=== PATIENT | female | born 1970 | race Caucasian/White ===

== ENCOUNTER → 2016-07-01 | Outpatient (CLI) | payer BC, OTHER ==
--- NOTE | 2016-07-01 08:56 | US ---
EXAMINATION TYPE: US pelvis complete transvag DATE OF EXAM: 07/01/2016 8:44 AM COMPARISON: NONE CLINICAL HISTORY: DUB N93.9. Tubal ligation 17 years ago TECHNIQUE: Transvaginal (TV) and Transabdominal (TA) Date of LMP: 06/24/16 EXAM MEASUREMENTS: Uterus: 9.5 x 5.9 x 8.1 cm Endometrial Stripe: 0.9 cm Right Ovary: 2.9 x 1.9 x 1.4 cm Left Ovary: unable to visualize TECHNOLOGIST IMPRESSION: 1. Uterus: Anteverted Nabothian cysts 2. Endometrium: appears wnl 3. Right Ovary: appears wnl 4. Left Ovary: unable to visualize 5. Bilateral Adnexa: appears wnl 6. Posterior cul-de-sac: small amount of free fluid IMPRESSION: NABOTHIAN CYSTS.
== END | disposition home or self-care (01) ==
LOC: RADUSWWP 08:00
PROVIDERS: ATTEND Internal Medicine
DX: N88.8 Other specified noninflammatory disorders of cervix uteri (principal)
CPT/HCPCS: 76830; 76856

== ENCOUNTER → 2016-09-30 | Outpatient (CLI) | payer OTHER ==
--- NOTE | 2016-10-03 11:34 | MM ---
Reason for exam: screening (asymptomatic). Baseline mammogram. History: Taking hormonal contraceptives for 6 months. Physical Findings: Nurse did not find any significant physical abnormalities on exam. MG Screening Mammo w CAD Bilateral CC and MLO view(s) were taken. The breast tissue is heterogeneously dense. This may lower the sensitivity of mammography. Suggestion of bilateral partially obscured nodularity measuring up to 2.2cm on the left MLO view. These results were verbally communicated with the patient and result sheet given to the patient on 09/30/16. ASSESSMENT: Incomplete: need additional imaging evaluation, BI-RAD 0 RECOMMENDATION: Special view mammogram and ultrasound of both breasts. [facility] will attempt to contact patient to return for supplemental views and ultrasound.
--- NOTE | 2016-10-03 11:36 | MM ---
Reason for exam: additional evaluation requested from abnormal screening. History: Taking hormonal contraceptives for 6 months. Physical Findings: Breast exam preformed at baseline screening. MG Work Up Mamm w CAD BILAT Bilateral LM view(s) were taken. The breast tissue is heterogeneously dense. This may lower the sensitivity of mammography. Some of the nodularity becomes more obscured on the lateral views, further ultrasound evaluation is recommended. These results were verbally communicated with the patient and result sheet given to the patient on 09/30/16. ASSESSMENT: Incomplete: need additional imaging evaluation, BI-RAD 0 RECOMMENDATION: Ultrasound of both breasts. (superior halves)
--- NOTE | 2016-10-03 11:42 | USB ---
Reason for exam: additional evaluation requested from abnormal screening. History: Taking hormonal contraceptives for 6 months. US Breast Workup Limited AUGUSTIN Right breast ultrasound demonstrates a 0.7 x 0.6 x 0.2cm oval, cystic lesion at 9 o'clock, a 0.4 x 0.3 x 0.3cm cystic lesion at 10 o'clock, a 0.6 x 0.6 x 0.3cm oval, cystic lesion at 12 o'clock, a 1.5 x 1.2 x 1.1 cm cystic cluster verses complex cyst at 12 o'clock for which a 6 month follow up is recommended, a 0.6 x 0.6 x 0.6 cm cystic, septated lesion at 3 o'clock versus complex cysts or fibrocystic change for which a 6 month follow up is recommended, a 1.3 x 1.3 x 0.9 cm cystic, septated lesion at 3 o'clock versus complex cysts or fibrocystic change for which a 6 month follow up is recommended, and a 0.6 x 0.5 x 0.5cm round, cystic lesion at 3 o'clock. Left breast ultrasound demonstrates a 1.4 x 1.4 x 0.7 cm cystic lesion at 10 o'clock, a 1.0 x 0.9 x 0.7cm oval, cystic lesion at 9 o'clock, a 1.2 x 1.1 x 0.6cm oval, cystic lesion at 11 o'clock, a 1.6 x 1.9 x 1.0cm oval, cystic lesion at 12 o'clock, likely corresponds to the dominant mammographic nodule, a 0.7 x 0.6 x 0.4cm oval, hypoechoic lesion at 2 o'clock possible cystic but located deep, echoes may be artifactual for which a 6 month follow up is recommended, and a 0.4 x 0.3 x 0.4cm oval, cystic lesion at 3 o'clock. These results were verbally communicated with the patient and result sheet given to the patient on 09/30/16. ASSESSMENT: Probably benign, BI-RAD 3 RECOMMENDATION: Ultrasound of both breasts in 6 months. Right breast targeted 12 and 3 o'clock. Left breast targeted at 2 o'clock.
== END | disposition home or self-care (01) ==
LOC: RADMAMWWP 07:32
PROVIDERS: ATTEND Obstetrics & Gynecology
DX: Z12.31 Encounter for screening mammogram for malignant neoplasm of breast (principal); R92.2 Inconclusive mammogram; R92.8 Other abnormal and inconclusive findings on diagnostic imaging of breast
CPT/HCPCS: 76642; G0202; G0204

== ENCOUNTER → 2016-09-30 | Outpatient (CLI) | payer OTHER ==
[2016-09-30 10:46] LABS: Basophils % (A) 0 %; CH 27.7; CHCM 31.2; Eosinophils # (A) 0.2 k/uL (0-0.7); Eosinophils % (A) 2 %; HDW 2.36; HGB 12.8 gm/dL (11.4-16.0); Hypochromasia Slight; Luc # (Auto) 0.21; Luc % (Auto) 3; Lymphocytes # (A) 2.5 k/uL (1.0-4.8); Lymphocytes % (A) 33 %; MCH 28.4 pg (25.0-35.0); Monocytes # (A) 0.3 k/uL (0-1.0); Monocytes % (A) 4 %; Neutrophils # (A) 4.3 k/uL (1.3-7.7); Neutrophils % (A) 57 %; RBC 4.49 m/uL (3.80-5.40); RDW 13.6 % (11.5-15.5); WBC 7.6 k/uL (3.8-10.6); WBC (Perox) 7.81
== END | disposition home or self-care (01) ==
LOC: LABPAT 09:24
PROVIDERS: ATTEND Obstetrics & Gynecology
DX: Z01.812 Encounter for preprocedural laboratory examination (principal)
CPT/HCPCS: 85025

== ENCOUNTER 2016-10-08 07:29 | Day surgery (SDC) | payer OTHER ==
[2016-10-03 11:57] VITALS: BMI 40.6
--- NOTE | 2016-10-07 15:43 | P.HPOB ---
History of Present Illness H&P Date: 10/07/16 Chief Complaint: menorrhagia 46 year old presents for D&C hysteroscopy and endometrial ablation with novasure. Review of Systems All systems: negative Constitutional: Denies chills, Denies fever Eyes: denies blurred vision, denies pain Ears, nose, mouth and throat: Denies headache, Denies sore throat Cardiovascular: Denies chest pain, Denies shortness of breath Respiratory: Denies cough Gastrointestinal: Denies abdominal pain, Denies diarrhea, Denies nausea, Denies vomiting Genitourinary: Denies dysuria, Denies hematuria Musculoskeletal: Denies myalgias Integumentary: Denies pruritus, Denies rash Neurological: Denies numbness, Denies weakness Psychiatric: Denies anxiety, Denies depression Endocrine: Denies fatigue, Denies weight change Past Medical History Additional Past Medical History / Comment(s): IRREGULAR MENSES History of Any Multi-Drug Resistant Organisms: None Reported Past Surgical History: Tubal Ligation Additional Past Surgical History / Comment(s): ectopic Past Anesthesia/Blood Transfusion Reactions: No Reported Reaction Past Psychological History: No Psychological Hx Reported Smoking Status: Former smoker Past Alcohol Use History: None Reported Additional Past Alcohol Use History / Comment(s): QUIT SMOKING 2015, SMOKED 1 PACK OVER 3-4DAYS, FROM AGE 18 Past Drug Use History: None Reported - Past Family History Mother Family Medical History: No Reported History Medications and Allergies Allergies Allergy/AdvReac Type Severity Reaction Status Date / Time amoxicillin [From Augmentin] Allergy Nausea & Verified 10/03/16 11:53 Vomiting clavulanic acid Allergy Nausea & Verified 10/03/16 11:53 [From Augmentin] Vomiting Exam Osteopathic Statement: *. No significant issues noted on an osteopathic structural exam other than those noted in the History and Physical/Consult. HEart: RRR Lungs: CTAB ABdomen: soft, nontender Extremeties: neg brittny's Assessment and Plan (1) Menorrhagia Status: Acute Plan: 1. D&C hysterosocpy and endometrial ablation with NovaSure
[~2016-10-08 07:29] MED LIST: DEXAMETHASONE SOD PHOSPHATE 10 MG/ML 1 ML VIAL IV ONE; HYDROmorphone 1 MG/ML 1 ML SYRINGE IVP PRN; LACTATED RINGERS 1,000 ML IV SCH; MIDAZOLAM 2 MG/2 ML VIAL IV PRN; ONDANSETRON 4 MG/2 ML VIAL IVP ONE; Pre Op ABX Message 1 EACH MISC MISCELLANE ONE; SCOPOLAMINE 1.5MG/72HR PATCH TRANSDERM ONE
[2016-10-08] MEDS ORDERED: LIDOCAINE 1% 20 ML VIAL (10MG/ML) FOR IV START INTRADERMA ONE (08:25)
[2016-10-08] MEDS ORDERED: KETOROLAC 30 MG/ML 1 ML VIAL ONE (08:56)
[2016-10-08] MEDS ORDERED: SUCCINYLCHOLINE CHLORIDE VIAL 200 MG/10 ML VIAL IV ONE (08:56)
[2016-10-08] MEDS ORDERED: LIDOCAINE 1% INJ 10MG/ML (20 ML MDV) ONE (08:56)
[2016-10-08] MEDS ORDERED: fentaNYL (PF) 50 MCG/ML 2 ML AMP ONE (08:56)
[2016-10-08] MEDS ORDERED: PROPOFOL 10 MG/ML 20 ML VIAL IV ONE (08:56)
[2016-10-08] MEDS ORDERED: MIDAZOLAM 2 MG/2 ML VIAL ONE (08:56)
--- NOTE | 2016-10-08 09:17 | P.OP ---
Date of Procedure: 10/08/16 Preoperative Diagnosis: 1. Menorrhagia Postoperative Diagnosis: 1. Menorrhagia Procedure(s) Performed: D&C, hysteroscopy, endometrial ablation with NovaSure Implants: Anesthesia: LEONELAA Surgeon: Lawanda Galloway Estimated Blood Loss (ml): 3 IV fluids (ml): 400 Urine output (ml): 75 Pathology: other (Uterine curettings) Condition: stable Disposition: PACU Indications for Procedure: Operative Findings: Cavity length 6.5 cm, width 3.3 cm, power 118 W, time of ablation 16 seconds. Adequate ablation after NovaSure Description of Procedure: Patient is taken the operating room where general anesthesia was obtained without difficulty. She was prepped and draped in normal sterile fashion dorsal lithotomy position, legs placed in the [facility] cane stirrups. Bladder was drained of all urine. Weighted speculum placed in the vagina and the anterior lip the cervix was grasped with serial tooth tenaculum. The uterus sounded to 10 cm and the cervix under 3.5 cm making the cavity length 6.5 cm. The cervix was dilated to #8 Hegar dilator. Hysteroscopy was then performed. Both ostia were visualized and there was a smooth contour of the uterus. Sharp curet was then gently used to obtain endometrial curettings. The NovaSure was introduced into the uterus with a cavity length of 6.5 cm, width 3.3 cm. after cavity assessment was passed, the time of ablation was 68 seconds at 118 W. Hysteroscopy was again performed and adequate ablation was noted. All instruments removed from the vagina. Patient tolerated the procedure well, sponge and instrument counts were correct 2 and she was taken to recovery in stable condition.
[2016-10-08 09:33] VITALS: TEMP 97.2
[2016-10-08] MEDS ORDERED: LACTATED RINGERS 1,000 ML IV ONE (10:28)
[2016-10-08 11:27] VITALS: BP 137/78; PULSE 75; RESP 18
== END 2016-10-08 11:55 | disposition home or self-care (01) ==
LOC: OR 07:29
PROVIDERS: ATTEND Obstetrics & Gynecology
DX: N92.1 Excessive and frequent menstruation with irregular cycle (principal); N85.00 Endometrial hyperplasia, unspecified; K21.9 Gastro-esophageal reflux disease without esophagitis; Z88.0 Allergy status to penicillin; Z79.3 Long term (current) use of hormonal contraceptives
CPT/HCPCS: 58563; 81025; 88305; J2250; J0330; J1100; J2405; J2001; J3010; J1885; J2704

== ENCOUNTER → 2017-11-07 | Outpatient (CLI) | payer OTHER ==
--- NOTE | 2017-11-07 10:14 | US ---
EXAMINATION TYPE: US abdomen complete DATE OF EXAM: 11/07/2017 COMPARISON: NONE CLINICAL HISTORY: R10.84 Generalized Abdominal Pain. NPO, abdominal cramping EXAM MEASUREMENTS: Liver Length: 13.9 cm Gallbladder Wall: 0.2 cm CBD: 0.3 cm CHD: 0.3 cm Spleen: 10.0 cm Right Kidney: 11.0 x 4.8 x 5.0 cm Left Kidney: 11.8 x 4.8 x 4.9 cm Pancreas: Appears heterogenous and echogenic. Tail not well visualized due to overlying bowel gas Liver: wnl Gallbladder: wnl Evidence for sonographic Pate's sign: neg CBD: wnl CHD: wnl Spleen: wnl Right Kidney: wnl Left Kidney: wnl Upper IVC: wnl Abd Aorta: wnl IMPRESSION: 1. Limited evaluation of the pancreas 2. Remainder of the abdomen ultrasound is visualized appears unremarkable.
--- NOTE | 2017-11-07 10:14 | US ---
EXAMINATION TYPE: US pelvis complete transvag DATE OF EXAM: 11/07/2017 COMPARISON: CLINICAL HISTORY: R10.84 Generalized Abdominal Pain. Abdominal cramping. Tubal ligation. Endometria l ablation x 1.5 years ago. TECHNIQUE: Transvaginal (TV) and Transabdominal (TA) . Transabdominal sonographic images of the pel vis were acquired. Transvaginal sonographic images were medically necessary to better assess the fol lowing anatomy: Endometrium and ovaries Date of LMP: unknown due to ablation, EXAM MEASUREMENTS: Uterus: 12.5 x 7.6 x 7.1 cm Endometrial Stripe: 0.6 cm Left Ovary: 3.1 x 1.8 x 1.8 cm Limited transvaginal exam due to uterine enlargement and penetration 1. Uterus: Anteverted Enlarged. Heterogenous. Shadowing seen in mid DEVON 2. Endometrium: Fluid seen with internal echos in fundal region 3. Right Ovary: Obscured by overlying bowel gas 4. Left Ovary: Seen transabdominally only. appears wnl. 5. Bilateral Adnexa: wnl 6. Posterior cul-de-sac: No free fluid Cervix- Nabothian cysts IMPRESSION: 1. No suspicious acute abnormalities. 2. Calcification may be within the lower uterine segment suggesting underlying fibroid.
== END | disposition home or self-care (01) ==
LOC: RADUSWWP 08:02
PROVIDERS: ATTEND Internal Medicine
DX: R10.84 Generalized abdominal pain (principal)
CPT/HCPCS: 76700; 76830; 76856

== ENCOUNTER → 2018-02-23 | Outpatient (CLI) | payer OTHER ==
[2018-02-23 07:21] LABS: Basophils % (A) 0 %; Eosinophils # (A) 0.2 k/uL (0-0.7); Eosinophils % (A) 2 %; HCT 43.1 % (34.0-46.0); HGB 13.8 gm/dL (11.4-16.0); Lymphocytes # (A) 2.1 k/uL (1.0-4.8); Lymphocytes % (A) 26 %; MCH 28.4 pg (25.0-35.0); MCHC 32.1 g/dL (31.0-37.0); MCV 88.6 fL (80.0-100.0); Mean Platelet Volume 7.2; Monocytes # (A) 0.3 k/uL (0-1.0); Monocytes % (A) 3 %; Neutrophils # (A) 5.3 k/uL (1.3-7.7); Neutrophils % (A) 66 %; Platelet Count 262 k/uL (150-450); RBC 4.87 m/uL (3.80-5.40); RDW 13.5 % (11.5-15.5); WBC 8.1 k/uL (3.8-10.6)
[2018-02-23 07:43] LABS: Anion Gap 8 mmol/L; Blood Urea Nitrogen 11 mg/dL (7-17); Carbon Dioxide 24 mmol/L (22-30); Chloride 106 mmol/L (98-107); Glucose 110 mg/dL (74-99); Potassium 4.5 mmol/L (3.5-5.1); Sodium 138 mmol/L (137-145)
== END | disposition home or self-care (01) ==
LOC: LABPAT 06:34
PROVIDERS: ATTEND Obstetrics & Gynecology Obstetrics
DX: Z01.812 Encounter for preprocedural laboratory examination (principal); N85.2 Hypertrophy of uterus; N85.7 Hematometra; R10.2 Pelvic and perineal pain
CPT/HCPCS: 36415; 80051; 82565; 82947; 84520; 85025; 87086

== ENCOUNTER 2018-03-02 05:53 | Day surgery (SDC) | payer OTHER ==
[2018-02-18 14:39] VITALS: BMI 39.9
--- NOTE | 2018-02-27 12:15 | HP ---
HISTORY AND PHYSICAL HISTORY OF PRESENT ILLNESS: This is a very pleasant 47-year-old, 2, para 2-0-0-2 with a known last menstrual period of 2016 that presents for a preoperative visit. Patient states she has been complaining of pelvic pain and irregular vaginal bleeding for quite some time. She had an endometrial ablation in the past and has noted increased bleeding since the beginning of December. She notes sharp pain. She was placed on oral contraceptive pill by Dr. Wakefield, but states that she wishes definitive treatment with a robotic assisted vaginal hysterectomy. Ultrasound was obtained and hematometra were noted. The uterus was noted to be slightly enlarged at 12 cm. PAST MEDICAL HISTORY: Allergies. PAST SURGICAL HISTORY: Endometrial ablation done in 2015 and next is tubal ligation years before that. MEDICATIONS: She is on ibuprofen. ALLERGIES: No known drug allergies. FAMILY HISTORY: Her family is alive and well. OB-RETAIL ADMINISTRATIVE ASSISTANT HISTORY: She had menarche at age 14. Last menstrual period in 2015 with spotting that started in December. She is a 2, para 2 with 2 prior vaginal deliveries. SOCIAL HISTORY: She states she is a former smoker. Denies caffeine, alcohol, or illicit drug use. REVIEW OF SYSTEMS: She denies body aches or night sweats. No headaches, sinus congestion. Denies breast lumps or changes in the breast tissue or nipple discharge. She admits to a regular menses with additional symptoms as stated above. She denies fever, urinary urgency, frequency, or incontinence. She denies any skin changes or rashes. She denies anxiety, depression, or easy bruising or bleeding. PHYSICAL EXAM: In general, she is a well-nourished, well-developed female. Her abdomen is noted to be nontender to palpation. Her lungs are clear to auscultation bilaterally. Her heart has a regular rate and rhythm. GENITOURINARY: External genitalia is noted to be normal appearance for age. No discharge or tenderness is noted. Vagina is normal. Vaginal vault without defect. No discharge or inflammatory masses are present. The bladder is nontender to palpation. The cervix appears healthy. The uterus is nontender and slightly enlarged with a normal shape. The adnexa are normal and nontender and no masses are present. The perineum is noted to be within normal limits. ASSESSMENT: 1. Enlarged uterus based on ultrasound of 10-12 cm. Endometrial biopsy was done containing negative findings with old blood consistent with hematometra. 2. Pelvic pain. PLAN: I discussed with the patient the indications for the procedure including the discussion where alternatives to treatment. Patient wishes definitive treatment with robotic assisted vaginal hysterectomy, diagnostic cystoscopy and possible BSO. Given her age, ovarian conservation is going to be taken. Risks are reviewed in detail but not included to infection, bleeding, damage to bladder, bowel, ureteric injury or other pelvic structures. Patient states understanding and informed consent was obtained. MMODL / IJN: [id number] /
[~2018-03-02 05:53] MED LIST changes: -DEXAMETHASONE SOD PHOSPHATE 10 MG/ML 1 ML VIAL IV ONE; -HYDROmorphone 1 MG/ML 1 ML SYRINGE IVP PRN; -LACTATED RINGERS 1,000 ML IV SCH; -MIDAZOLAM 2 MG/2 ML VIAL IV PRN; -ONDANSETRON 4 MG/2 ML VIAL IVP ONE; -Pre Op ABX Message 1 EACH MISC MISCELLANE ONE; -SCOPOLAMINE 1.5MG/72HR PATCH TRANSDERM ONE; +ceFAZolin IN SWFI 2 GM/20 ML SYRINGE IVP ONE
[2018-03-02] MEDS ORDERED: LIDOCAINE 1% 20 ML VIAL (10MG/ML) FOR IV START INTRADERMA PRN (06:12)
[2018-03-02] MEDS ORDERED: HYDROmorphone 0.5 MG/0.5 ML SYRINGE IVP PRN (06:12)
[2018-03-02] MEDS ORDERED: ONDANSETRON 4 MG/2 ML VIAL IVP ONE (06:12)
[2018-03-02] MEDS: LACTATED RINGERS 1,000 ML IV SCH ×3 (06:35→11:57)
[2018-03-02] MEDS ORDERED: ACETAMINOPHEN IV (For NPO) 1,000 MG/100 ML VIAL ONE (07:28)
[2018-03-02] MEDS ORDERED: GLYCOPYRROLATE 0.2 MG/ML 2 ML VIAL ONE (07:28)
[2018-03-02] MEDS ORDERED: HYDROmorphone (PF) 1 MG/ML ONE (07:28)
[2018-03-02] MEDS ORDERED: MIDAZOLAM 2 MG/2 ML VIAL ONE (07:28)
[2018-03-02] MEDS ORDERED: LIDOCAINE 1% INJ 10MG/ML (20 ML MDV) ONE (07:28)
[2018-03-02] MEDS ORDERED: SUCCINYLCHOLINE CHLORIDE 100 MG/5 ML SYR IV ONE (07:28)
[2018-03-02] MEDS ORDERED: NEOSTIGMINE 1 MG/ML 10 ML VIAL ONE (07:28)
[2018-03-02] MEDS ORDERED: fentaNYL (PF) 50 MCG/ML 2 ML AMP ONE (07:28)
[2018-03-02] MEDS ORDERED: PROPOFOL 10 MG/ML 20 ML VIAL IV ONE (07:28)
[2018-03-02] MEDS ORDERED: ROCURONIUM BROMIDE 10 MG/ML 10 ML VIAL IV ONE (07:28)
[2018-03-02] MEDS ORDERED: Acetaminophen-Codeine 300-30mg TAB PO PRN ×2 (07:38)
[2018-03-02] MEDS ORDERED: ACETAMINOPHEN IV (For NPO) 1,000 MG in EMPTY BAG 1 BAG IVPB ONE (07:38)
[2018-03-02] MEDS ORDERED: ROPIVACAINE 5 MG/ML 30 ML VIAL MISCELLANE ONE ×2 (07:59)
--- NOTE | 2018-03-02 09:35 | P.OP ---
Date of Procedure: 03/02/18 Preoperative Diagnosis: Pelvic pain, failed ablation, hematometra Postoperative Diagnosis: Same Procedure(s) Performed: Robotic-assisted vaginal hysterectomy, diagnostic cystoscopy Anesthesia: ELLA Surgeon: Alicia Delatorre Commodity Supervisor #1: Jaye Oneill Estimated Blood Loss (ml): 100 IV fluids (ml): 1,300 Urine output (ml): 250 Pathology: other (Uterus fallopian tubes cervix) Condition: stable Disposition: PACU Indications for Procedure: Failed ablation, pelvic pain, hematometra Operative Findings: Enlarged globular uterus with normal ovaries bilaterally Description of Procedure: Patient was seen in the preoperative area and informed and was obtained. Patient was once again counseled on the risks of surgery including but not limited to infection, bleeding, damage to bladder, bowel, ureteric or other pelvic structures. Patient stated understanding and wished to proceed. The patient was taken operating suite where general anesthesia was obtained by the anesthesia department. Patient was then prepped and draped in the normal sterile fashion in the dorsal lithotomy position. A Flannery catheter was then placed under sterile technique. A weighted speculum was placed in the posterior vaginal vault the anterior lip of the cervix is visualized grasped with a single-tooth tenaculum the endocervical canal was then dilated to be care unit immediately was advanced into the endometrial cavity as a means to manipulative uterus throughout the procedure. Attention was then turned and the patient's abdomen where approximately 2 fingerbreadths above the umbilicus a small skin incision is made. Through this incision the Veress needle was placed once the Veress needle was deemed to be in the appropriate position with a drop in CO2 pressure with insufflation of CO2 gas CO2 insufflation was allowed to occur. The incision was then elongated to 12 mm and a 12 mm trocar and sleeve is placed through the incision and toward the pneumoperitoneum. The above noted findings were visualized. At this point the additional port sites are placed at 10 cm lateral and 3 cm inferior to the midline port these are 8 mm ports were placed under direct visualization. In the left upper quadrant 12 mm trocar and sleeve is placed under direct visualization. At this time the da Chava robot was docked in the usual fashion the operative arms are now placed. In the right operative arm a monopolar scissors was placed in the left operative arm the bipolar forceps was placed. Attention was then turned to the patient's left utero-ovarian ligament the fallopian tube was noted to be closely adherent to the ovary and was left secondary to that. The utero- ovarian ligament was coagulated distally and proximally divided hemostasis was appreciated this continued through the broad and toward the round which is coagulative distally and proximally and divided. Hemostasis was appreciated throughout. The bladder flap from the left was then created using sharp and blunt dissection. Attention was then turned the patient's right uterine ovarian ligament which was coagulated distally and proximally and divided this continued through the broad and toward the round which was coagulated distally and proximally and divided. Hemostasis was appreciated. The bladder flap from the right was then created using sharp and blunt dissection. Once the bladder was noted to be far away from the operating field the ascending branch of the uterine artery from the right was visualized coagulated distally and proximally and divided hemostasis was appreciated this was then repeated on the left. At this point the only remaining attachment was a vaginal attachment therefore colpotomy incision was made in a circumferential fashion and the uterus was delivered through the vaginal opening. The vaginal cuff was then copiously irrigated and closed with 0 Vicryl [id number] suture. 5 [id number] sutures were used to close the vaginal cuff. On inspection the patient's pelvis the vaginal cuff was noted to be hemostatic. At this point FloSeal was placed over the vaginal cuff and all instruments were removed from the patient's abdomen. Attention was then turned the patient' s Flannery catheter which was removed without difficulty and noted to be clean draining clear yellow urine. A cystoscope was placed through the urethra and toward the bladder blade about that was noted both ureteral orifices were noted to be spilling clear yellow urine. The cystoscope along with a cystoscopy fluid was removed. Flannery catheter was replaced. In addition a small vaginal laceration was noted 4-0 chromic was used in a [id number] fashion to obtain hemostasis. Attention was then turned to the patient's abdomen where the skin incisions were closed with 4-0 Vicryl in a subcuticular fashion Steri-Strips and sterile dressings were applied as needed. All counts were correct 2 patient tolerated procedure well was taken to the recovery room awake and in stable condition.
[2018-03-02] MEDS: IBUPROFEN IV 800 MG in SODIUM CHLORIDE 0.9% 250 ML IV ONE (13:44)
[2018-03-03] MEDS: IBUPROFEN IV 800 MG in SODIUM CHLORIDE 0.9% 250 ML IV ONE ×2
[2018-03-03 05:58] LABS: Basophils % (A) 0 %; Eosinophils # (A) 0.1 k/uL (0-0.7); Eosinophils % (A) 1 %; HCT 37.8 % (34.0-46.0); HGB 12.2 gm/dL (11.4-16.0); Lymphocytes # (A) 2.1 k/uL (1.0-4.8); Lymphocytes % (A) 27 %; MCH 28.3 pg (25.0-35.0); MCHC 32.4 g/dL (31.0-37.0); MCV 87.2 fL (80.0-100.0); Mean Platelet Volume 7.3; Monocytes # (A) 0.3 k/uL (0-1.0); Monocytes % (A) 4 %; Neutrophils # (A) 5.1 k/uL (1.3-7.7); Neutrophils % (A) 66 %; Platelet Count 227 k/uL (150-450); RBC 4.33 m/uL (3.80-5.40); RDW 13.3 % (11.5-15.5); WBC 7.6 k/uL (3.8-10.6)
[2018-03-03] MEDS ORDERED: IBUPROFEN 800 MG TAB PO STA (08:25)
--- NOTE | 2018-03-03 08:28 | P.DS ---
Providers Date of admission: 03/02/2018 Expected date of discharge: 03/03/18 Attending physician: Aliica Delatorre Primary care physician: Ana Wakefield - Discharge Diagnosis(es) (1) Pelvic pain Current Visit: Yes Status: Acute (2) Enlarged uterus Current Visit: Yes Status: Acute (3) Hematometra Current Visit: Yes Status: Acute Hospital Course: This is a 47-year-old female that presented to the hospital yesterday 10:15 for robotic cyst vaginal hysterectomy with diagnostic cystoscopy. Patient was noted to have an ablation approximately 1 year ago and on exam was noted have heme endometrium, and enlarged uterus and is having significant pelvic pain. Patient elected definitive treatment with robotic-assisted vaginal hysterectomy informed consent was obtained and patient was taken to the operating suite. Surgery was completed without difficulty for further details on the operation please see the operative report. Patient's postoperative course has been uneventful. She is ambulating and voiding without difficulty. She is tolerating a regular diet without nausea or vomiting. Her pain is controlled with oral Motrin. She does wish discharge home this morning. Plan - Discharge Summary Discharge Rx Participant: Yes New Discharge Prescriptions: No Action Norethindrone-Ethinyl Estrad [Ortho-Novum 7-7-7-28 Tablet] 1 each PO DAILY # 1 tablet Ibuprofen [Motrin] 600 mg PO Q6HR PRN #30 tab PRN Reason: Mild Pain Or Fever >= 100.5 Acetaminophen Tab [Tylenol Tab] 650 mg PO Q6H PRN PRN Reason: Pain Discharge Medication List Norethindrone-Ethinyl Estrad [Ortho-Novum 7-7-7-28 Tablet] 1 each PO DAILY #1 tablet 05/07/16 [Rx] Ibuprofen [Motrin] 600 mg PO Q6HR PRN #30 tab 10/08/16 [Rx] Acetaminophen Tab [Tylenol Tab] 650 mg PO Q6H PRN 02/25/18 [History] Follow up Appointment(s)/Referral(s): Alicia Delatorre DO [Doctor of Osteopathic Medicine] - 2 Weeks Patient Instructions/Handouts: Laparoscopic Hysterectomy (GEN), Laparoscopic Hysterectomy (DC) Discharge Disposition: HOME SELF-CARE
[2018-03-03 10:40] VITALS: BP 145/74; PULSE 71; RESP 18; TEMP 98.6
== END 2018-03-03 10:26 | disposition home or self-care (01) ==
LOC: OR 05:53 → 4FBP 09:34 → OR 03-03 10:26
PROVIDERS: ATTEND Obstetrics & Gynecology Obstetrics
DX: N85.2 Hypertrophy of uterus (principal); N72 Inflammatory disease of cervix uteri; Z87.891 Personal history of nicotine dependence; Z88.0 Allergy status to penicillin
CPT/HCPCS: 58553; S2900; 81025; 85025; 86850; 86900; 86901; 88307

== ENCOUNTER → 2021-03-29 | Outpatient (CLI) | payer OTHER ==
--- NOTE | 2021-03-30 08:29 | CT ---
EXAMINATION TYPE: CT abdomen w con DATE OF EXAM: 03/29/2021 COMPARISON: NONE HISTORY: 50-year-old female R10.9 abdominal Pain TECHNIQUE: Contiguous axial scanning of the abdomen following administration of 100 ml Isovue 300 IV contrast. Delayed images through the kidneys and coronal/sagittal reconstructions performed. CT DLP: 1198.5 mGycm Automated exposure control for dose reduction was used. FINDINGS: Heart normal size without pericardial effusion. Lung bases clear without pleural effusion. Prominent ingested debris and contrast distending the stomach. Liver borderline enlarged at 17.9 cm with a diffuse diminished attenuation. No focal lesion is seen. Portal venous system is patent. No biliary ductal dilatation. Gallbladder, adrenal glands, kidneys, spleen, and pancreas within normal limits. No dilated small bowel, free fluid, or free air. There are a few clustered nonenlarged and borderline -sized right lower quadrant mesenteric lymph nodes measuring up to 6 mm. Probably reactive/post infla mmatory. Otherwise, no mesenteric or retroperitoneal lymphadenopathy. Appendix not visualized, probably outside the field of view. There is moderate overall stool burden. No pericolonic inflammatory change. The pelvis is not imaged. Bones: Mild/moderate degenerative disc disease L5-S1 and facet arthropathy lower lumbar spine. IMPRESSION: 1. 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 CORRELATE WITH LFT's, LIPID PROFILE, AND PATIENT RISK FACTORS. 2. MODERATE STOOL BURDEN. OTHERWISE, NO ACUTE INFLAMMATORY PROCESS IDENTIFIED IN THE ABDOMEN. 3. NOTE THAT THE PELVIS IS NOT IMAGED.
== END | disposition home or self-care (01) ==
LOC: RADCTMAIN 16:23
PROVIDERS: ATTEND Internal Medicine
DX: K76.0 Fatty (change of) liver, not elsewhere classified (principal); R16.0 Hepatomegaly, not elsewhere classified
CPT/HCPCS: 74160; Q9967